=== PATIENT | female | born 1980 | race African-American/Black ===

== ENCOUNTER 2022-09-17 12:19 | Emergency (ER) | payer MEDICAID ==
[~2022-09-17] VITALS: Ht 175.3 cm; Wt 80.0 kg
[2022-09-17] MEDS ORDERED: ONDANSETRON HCL 4MG/2ML INJ IV STA (12:36)
[2022-09-17] MEDS ORDERED: SODIUM CHLORIDE 0.9% 1,000 ML IV ONE (12:45)
[2022-09-17 13:53] LABS: HEMATOCRIT. 28.1 % (36.0-48.0); HEMOGLOBIN. 8.5 g/dL (12.0-16.0); MEAN CORPUSCULAR HEMOGLOBIN 20.9 pg (28.0-32.0); MEAN CORPUSCULAR VOLUME 69.2 fL (81.0-99.0); MEAN PLATELET VOLUME 8.8 fl (7.4-10.4); PLATELET 278 x1000/uL (130-400); RED BLOOD CELL COUNT 4.06 mill/uL (4.2-5.4); RED CELL DISTRIBUTION WIDTH 17.7 % (11.6-14.6)
[2022-09-17 13:54] LABS: CHLORIDE 111 mEq/L (98-107)
[2022-09-17 14:12] LABS: PLATELET ESTIMATE NORMAL
[2022-09-17 14:18] LABS: HCG SCREEN NEGATIVE
[2022-09-17] MEDS ORDERED: ACETAMINOPHEN 325MG TABLET PO ONE (14:45)
[2022-09-17 15:33] VITALS: BP 107/69
== END 2022-09-17 15:34 | disposition home or self-care (01) ==
LOC: ER 13:14
DX: R51.9 Headache, unspecified (principal)
CPT/HCPCS: 36415; 80053; 84703; 85025; 99283; J7030

== ENCOUNTER 2024-10-24 14:23 | Emergency (ER) | payer MEDICAID, OTHER ==
[~2024-10-24] VITALS: Ht 170.2 cm; Wt 77.0 kg
[2024-10-24 14:26] VITALS: O2SAT 100
[2024-10-24 15:15] LABS: HEMATOCRIT. 25.7 % (36.0-48.0); HEMOGLOBIN. 7.6 g/dL (12.0-16.0); MEAN CORPUSCULAR HEMOGLOBIN 17.6 pg (28.0-32.0); MEAN CORPUSCULAR HGB CONC 29.6 g/dL (31.0-37.0); MEAN CORPUSCULAR VOLUME 59.5 fL (81.0-99.0); MEAN PLATELET VOLUME 8.9 fl (7.4-10.4); PLATELET 371 x1000/uL (130-400); RED BLOOD CELL COUNT 4.31 mill/uL (4.2-5.4); RED CELL DISTRIBUTION WIDTH 22.1 % (11.6-14.6); WHITE BLOOD COUNT 6.2 x1000/uL (4.5-11.0)
[2024-10-24] MEDS: SODIUM CHLORIDE 0.9% 1,000 ML IV ONE (15:15)
[2024-10-24 15:19] LABS: DIFFERENTIAL COMMENT 1
[2024-10-24 15:23] LABS: CHLORIDE 106 mEq/L (98-107); POTASSIUM 3.6 mEq/L (3.5-5.1); SODIUM 140 mEq/L (136-145)
[2024-10-24 15:24] LABS: CALCIUM 9.3 mg/dL (8.7-10.4); CARBON DIOXIDE 25 mEq/L (21-32)
[2024-10-24 15:29] LABS: CREATININE 0.9 mg/dL (0.6-1.0); GLUCOSE 92 mg/dL (70-105); UREA NITROGEN BLOOD 11 mg/dL (9-23)
[2024-10-24 15:31] LABS: CREATINE KINASE 61 IU/L (34-145)
[2024-10-24 15:34] LABS: ANISOCYTOSIS 2+; HYPOCHROMASIA 3+; MICROCYTOSIS 3+; PLATELET ESTIMATE NORMAL
[2024-10-24 15:40] LABS: HCG SCREEN NEGATIVE
[2024-10-24 15:54] LABS: TROPONIN I HIGH SENSITIVITY < 4 ng/L (3.0-34)
[2024-10-24 17:04] LABS: CLARITY URINE CLOUDY (CLEAR); COLOR URINE YELLOW (YELLOW); GLUCOSE URINE NEGATIVE (NEGATIVE); KETONES URINE NEGATIVE (NEGATIVE); LEUKOCYTE ESTERASE URINE 1+ (NEGATIVE); NITRITE URINE NEGATIVE (NEGATIVE); OCCULT BLOOD URINE NEGATIVE (NEGATIVE); PH URINE 5.5 (4.5-8.0); PROTEIN URINE NEGATIVE (NEGATIVE); SPECIFIC GRAVITY URINE 1.019 (1.005-1.030); UROBILINOGEN URINE 0.2 E.U./dL (0.2-1.0)
[2024-10-24 17:17] LABS: RBC URINE NONE SEEN /hpf (0-2); WBC URINE 0-2 /hpf (0-2)
[2024-10-24 17:18] LABS: BACTERIA URINE TRACE; MUCUS URINE TRACE /lpf (< = 2+); SQUAMOUS EPITHELIAL CELL URINE 2+ /lpf (RARE/1+); YEAST URINE 1+
[2024-10-24] MEDS ORDERED: FLUC150T46 MT (17:24)
[2024-10-24] MEDS ORDERED: CEPH500C2 MT (17:24)
[2024-10-24 17:50] VITALS: BP 123/61; PULSE 88; RESP 16; TEMP 37; O2SAT 100
[2024-10-24] MEDS: ONDANSETRON HCL 4MG/2ML INJ IV ONE (18:04)
== END 2024-10-24 19:00 | disposition home or self-care (01) ==
LOC: ER 14:23
DX: R55 Syncope and collapse (principal); B37.49 Other urogenital candidiasis
CPT/HCPCS: 99284; 96374; 96361; 80048; 81003; 82550; 84703; 85025; 84484; 36415; 93005; J2405; J7030